=== PATIENT | female | born 1960 | race Caucasian/White ===

== ENCOUNTER 2018-09-04 01:46 | Emergency (ER) | payer OTHER ==
[~2018-09-04 01:46] MED LIST: CALC500T76 PO; LEVO112T43 PO; LEVO75TA68 PO; LOR5 PO; MULT1CAP41 PO
--- NOTE | 2018-09-04 02:09 | ER Report ---
History and Physical Time Seen By MD: 02:09 Hx. of Stated Complaint: PATIENT STARTED HAVING SYMPTOMS OF A UTI ON WEDNESDAY, PLACED ON ANTIBIOTICS; STATES THAT SHE STILL FEELS LIKE SHE IS HAVING SOME DISCOMOFRT AND PAIN AND HAVING TO PEE ALL THE TIME HPI/ROS CHIEF COMPLAINT: Dysuria, urinary frequency, right lower abdominal and back pain HISTORY OF PRESENT ILLNESS: This is a 58-year-old female. She has been treated for a UTI starting on Wednesday. She is on Bactrim DS. Still having some dysuria, but tonight started to have worsening right lower abdominal pain. Also with radiation to the lower back. Urine a little dark as well. No problems with bowels. No fevers or chills. She does have some nausea occasionally, but doing okay at this time. No chest pain or shortness of breath. Allergies: Coded Allergies: No Known Drug Allergies (Verified , 06/23/12) Home Meds Active Scripts Ondansetron (ONDANSETRON ODT) 4 Mg Tab.rapdis, 4 MG PO Q6H PRN for NAUSEA/VOMITING, #20 TAB 0 Refills Prov:MENDEZ CURTIS MD 09/04/18 Ketorolac Tromethamine (KETOROLAC TROMETHAMINE) 10 Mg Tab, 10 MG PO Q6H PRN for PAIN, #12 TAB 0 Refills Prov:MENDEZ CURTIS MD 09/04/18 Hydrocodone Bit/Acetaminophen (HYDROCODON-ACETAMINOPHEN 5-325) 1 Each Tablet, 1 EACH PO Q4H PRN for PAIN, #12 TAB 0 Refills Prov:MENDEZ CURTIS MD 09/04/18 Tamsulosin Hcl (FLOMAX) 0.4 Mg Cap.er.24h, 0.4 MG PO QDAY, #14 CAP 0 Refills Prov:MENDEZ CURTIS MD 09/04/18 Reported Medications Levothyroxine Sodium (Levothyroxine Sodium) 112 Mcg Tablet, 112 MCG PO QAM, 0 Refills 05/13/11 Multivitamins W-Minerals (Multivitamin) 1 Cap Capsule, 1 CAP PO DAILY, 0 Refills 05/13/11 Calcium (Calcium) 500 Mg Tablet, 500 MG PO, 0 Refills 05/13/11 Reviewed Nurses Notes: Yes Hx Alcohol Use: Yes (OCCASIONALLY) Constitutional Vital Sign - Last 24 Hours 09/04/18 09/04/18 09/04/18 09/04/18 02:00 02:16 02:30 02:31 Temp 98.1 Pulse 55 50 60 Resp 17 B/P (MAP) 141/71 (94) Pulse Ox 96 97 95 O2 Delivery Room Air 09/04/18 09/04/18 09/04/18 09/04/18 02:46 03:00 03:01 03:16 Pulse 47 ??? 62 B/P (MAP) 140/83 (102) Pulse Ox 95 94 96 09/04/18 09/04/18 09/04/18 03:31 03:46 04:06 Pulse 49 61 49 Pulse Ox 98 94 Intake and Output 09/03/18 09/03/18 09/04/18 15:00 23:00 07:00 Intake Total 1000 ml Balance 1000 ml Physical Exam General Appearance: Alert, having mild distress due to pain. Eyes: Pupils equal and round no injection. ENT: Normal oral mucosa. Moist mucous membranes. Respiratory: Chest is non tender, lungs are clear to auscultation. Cardiac: regular rate and rhythm Gastrointestinal: Abdomen is soft, having some tenderness in the right lower abdomen. No CVA tenderness. Musculoskeletal: Extremities have full range of motion. Skin: No rashes or lesions. DIFFERENTIAL DIAGNOSIS: After history and physical exam differential diagnosis was considered for right lower abdominal pain including but not limited to appendicitis, gastroenteritis, colitis, kidney stone and urinary tract infection. Medical Decision Making Data Points Result Diagram: 09/04/18 0224 09/04/18 0224 Laboratory Hematology Test 09/04/18 02:09 09/04/18 02:24 Urine Color Yellow Urine Clarity Slightly-cloudy Urine pH 5.0 pH (4.8-9.5) Urine Specific [place] 1.020 Urine Protein Negative mg/dL (NEGATIVE) Urine Glucose (UA) Negative mg/dL (NEGATIVE) Urine Ketones Negative mg/dL (NEGATIVE) Urine Blood Large (NEGATIVE) Urine Nitrite Negative (NEGATIVE) Urine Bilirubin Negative (NEGATIVE) Urine Urobilinogen Negative mg/dL (0.2-1.9) Urine Leukocyte Esterase Small (NEGATIVE) Urine RBC 346 /HPF (0-2/HPF) Urine WBC 9 /HPF (0-5/HPF) Urine Squamous Epithelial Cells Few /LPF (</=FEW) Urine Transitional Epithelial Cells Few /LPF (NONE-FEW) Urine Calcium Oxalate Crystals Few /HPF (NONE) Urine Bacteria Negative /HPF (NONE-FEW) Urine Mucus None /HPF (NONE-FEW) Red Blood Count 4.66 M/uL (4.17-5.56) Mean Corpuscular Volume 93.0 fL (80.0-96.0) Mean Corpuscular Hemoglobin 31.6 pg (26.0-33.0) Mean Corpuscular Hemoglobin Concent 33.9 g/dL (32.0-36.0) Red Cell Distribution Width 12.5 % (11.5-14.5) Mean Platelet Volume 9.6 fL (7.2-11.1) Neutrophils (%) (Auto) 56.9 % (39.4-72.5) Lymphocytes (%) (Auto) 27.4 % (17.6-49.6) Monocytes (%) (Auto) 11.7 % (4.1-12.4) Eosinophils (%) (Auto) 3.1 % (0.4-6.7) Basophils (%) (Auto) 0.9 % (0.3-1.4) Nucleated RBC Relative Count (auto) 0.1 /100WBC Neutrophils # (Auto) 2.7 K/uL (2.0-7.4) Lymphocytes # (Auto) 1.3 K/uL (1.3-3.6) Monocytes # (Auto) 0.6 K/uL (0.3-1.0) Eosinophils # (Auto) 0.1 K/uL (0.0-0.5) Basophils # (Auto) 0.0 K/uL (0.0-0.1) Nucleated RBC Absolute Count (auto) 0.01 K/uL Sodium Level 139 mmol/L (137-145) Potassium Level 3.9 mmol/L (3.5-5.0) Chloride Level 107 mmol/L (98-107) Carbon Dioxide Level 23 mmol/L (22-31) Blood Urea Nitrogen 19 mg/dl (7-18) Creatinine 1.10 mg/dl (0.52-1.04) Glomerular Filtration Rate Calc 50.7 Random Glucose 97 mg/dl (75-110) Calcium Level 9.4 mg/dl (8.4-10.2) Total Bilirubin 0.2 mg/dl (0.2-1.3) Aspartate Amino Transf (AST/SGOT) 31 U/L (0-35) Alanine Aminotransferase (ALT/SGPT) 38 U/L (0-56) Alkaline Phosphatase 116 U/L (0-126) Total Protein 6.7 g/dl (6.3-8.2) Albumin 4.1 g/dl (3.5-5.0) Amylase Level 71 U/L (0-110) Lipase 60 U/L (23-300) Chemistry Test 09/04/18 02:09 09/04/18 02:24 Urine Color Yellow Urine Clarity Slightly-cloudy Urine pH 5.0 pH (4.8-9.5) Urine Specific [place] 1.020 Urine Protein Negative mg/dL (NEGATIVE) Urine Glucose (UA) Negative mg/dL (NEGATIVE) Urine Ketones Negative mg/dL (NEGATIVE) Urine Blood Large (NEGATIVE) Urine Nitrite Negative (NEGATIVE) Urine Bilirubin Negative (NEGATIVE) Urine Urobilinogen Negative mg/dL (0.2-1.9) Urine Leukocyte Esterase Small (NEGATIVE) Urine RBC 346 /HPF (0-2/HPF) Urine WBC 9 /HPF (0-5/HPF) Urine Squamous Epithelial Cells Few /LPF (</=FEW) Urine Transitional Epithelial Cells Few /LPF (NONE-FEW) Urine Calcium Oxalate Crystals Few /HPF (NONE) Urine Bacteria Negative /HPF (NONE-FEW) Urine Mucus None /HPF (NONE-FEW) White Blood Count 4.7 k/uL (4.5-11.0) Red Blood Count 4.66 M/uL (4.17-5.56) Hemoglobin 14.7 g/dL (12.0-16.0) Hematocrit 43.3 % (34.0-47.0) Mean Corpuscular Volume 93.0 fL (80.0-96.0) Mean Corpuscular Hemoglobin 31.6 pg (26.0-33.0) Mean Corpuscular Hemoglobin Concent 33.9 g/dL (32.0-36.0) Red Cell Distribution Width 12.5 % (11.5-14.5) Platelet Count 180 K/uL (150-450) Mean Platelet Volume 9.6 fL (7.2-11.1) Neutrophils (%) (Auto) 56.9 % (39.4-72.5) Lymphocytes (%) (Auto) 27.4 % (17.6-49.6) Monocytes (%) (Auto) 11.7 % (4.1-12.4) Eosinophils (%) (Auto) 3.1 % (0.4-6.7) Basophils (%) (Auto) 0.9 % (0.3-1.4) Nucleated RBC Relative Count (auto) 0.1 /100WBC Neutrophils # (Auto) 2.7 K/uL (2.0-7.4) Lymphocytes # (Auto) 1.3 K/uL (1.3-3.6) Monocytes # (Auto) 0.6 K/uL (0.3-1.0) Eosinophils # (Auto) 0.1 K/uL (0.0-0.5) Basophils # (Auto) 0.0 K/uL (0.0-0.1) Nucleated RBC Absolute Count (auto) 0.01 K/uL Glomerular Filtration Rate Calc 50.7 Calcium Level 9.4 mg/dl (8.4-10.2) Total Bilirubin 0.2 mg/dl (0.2-1.3) Aspartate Amino Transf (AST/SGOT) 31 U/L (0-35) Alanine Aminotransferase (ALT/SGPT) 38 U/L (0-56) Alkaline Phosphatase 116 U/L (0-126) Total Protein 6.7 g/dl (6.3-8.2) Albumin 4.1 g/dl (3.5-5.0) Amylase Level 71 U/L (0-110) Lipase 60 U/L (23-300) Urinalysis Test 09/04/18 02:09 Urine Color Yellow Urine Clarity Slightly-cloudy Urine pH 5.0 pH (4.8-9.5) Urine Specific [place] 1.020 Urine Protein Negative mg/dL (NEGATIVE) Urine Glucose (UA) Negative mg/dL (NEGATIVE) Urine Ketones Negative mg/dL (NEGATIVE) Urine Blood Large (NEGATIVE) Urine Nitrite Negative (NEGATIVE) Urine Bilirubin Negative (NEGATIVE) Urine Urobilinogen Negative mg/dL (0.2-1.9) Urine Leukocyte Esterase Small (NEGATIVE) Urine RBC 346 /HPF (0-2/HPF) Urine WBC 9 /HPF (0-5/HPF) Urine Squamous Epithelial Cells Few /LPF (</=FEW) Urine Transitional Epithelial Cells Few /LPF (NONE-FEW) Urine Calcium Oxalate Crystals Few /HPF (NONE) Urine Bacteria Negative /HPF (NONE-FEW) Urine Mucus None /HPF (NONE-FEW) EKG/Imaging Imaging COMPUTED TOMOGRAPHY ABDOMEN AND PELVIS WITH INTRAVENOUS CONTRAST DATE OF EXAM: 09/04/2018 3:04 AM INDICATION: Right-sided flank pain. COMPARISON: None. TECHNIQUE: Contrast enhanced abdomen and pelvis CT performed during the injection of 75 ml of Isovue 370. Sagittal and coronal reconstructions were performed. One of the following dose optimization techniques was utilized in [facility] performance of this exam: Automated exposure control; adjustment of the mA and/or kV according to the patient's size; or use of an iterative reconstruction technique. Specific details can be referenced in the facility's radiology CT exam operational policy. FINDINGS: Lung bases: There are multiple bilateral pulmonary nodules measuring under 5 mm in diameter. Liver and hepatic vasculature: No acute abnormality or suspicious lesion. Subcentimeter hypoattenuating lesion in the posterior right lobe on image 22 series 2 likely represents a cyst or hemangioma. Gallbladder and bile ducts: Normal. Spleen: Normal. Pancreas: Normal. Adrenals: Normal. Kidneys, ureters and bladder: 4 mm calculus at the right ureterovesicular junction with associated mild hydronephrosis and hydroureter. Reactive increased urothelial enhancement in the distal aspect of the right ureter. No nobstructing punctate calculus in the mid portion of the left kidney. Question subcentimeter cyst in the midportion of the right kidney on image 40 series 2. Retroperitoneum and aorta: Nonaneurysmal aorta with minimal atherosclerosis. No adenopathy. GI tract, mesentery and peritoneum: Nonacute. Normal appendix. Uterus and adnexa: Retroflexed uterus. Bones and soft tissues: No acute abnormality or suspicious lesion. IMPRESSION: 1. 4 mm calculus at the right ureterovesicular junction with associated mild hydronephrosis and hydroureter 2. Multiple pulmonary nodules measuring under 5 mm in diameter. Current Fleischner Society recommendations for multiple pulmonary nodules less than 6 mm (average of long and short axis): - Low risk: No routine follow-up. - High risk: Optional noncontrast CT at 12 months. Use most suspicious nodule as guide to management. Miguel H, Rome Us, Anjelica J, et al. Guidelines for management of small pulmonary nodules detected on CT images: from the Fleischner society 2017. Report Dictated By: Wesley Bhandari MD at 09/04/2018 3:25 AM ED Course/Re-evaluation Clinical Indication for ER IV: Hydration, IV Access ED Course Patient was given a liter of normal saline. Labs and CT scan obtained. CT scan does show 4 mm stone right UVJ. Patient was given medicine to use for pain and nausea home as well as Flomax. See discharge instructions. Decision to Disposition Date: Sep 04, 2018 Decision to Disposition Time: 03:52 Depart Departure Latest Vital Signs Vital Signs Date Time Temp Pulse Resp B/P (MAP) Pulse Ox O2 Delivery O2 Flow Rate FiO2 09/04/18 04:06 49 94 09/04/18 03:00 140/83 (102) 09/04/18 02:00 98.1 17 Room Air Impression: Primary Impression: Kidney stone on right side Condition: Improved Disposition: HOME OR SELF-CARE Referrals: MAGGIE SUÁREZ (PCP) New Scripts Ondansetron (ONDANSETRON ODT) 4 Mg Tab.rapdis 4 MG PO Q6H PRN for NAUSEA/VOMITING, #20 TAB 0 Refills Prov: MENDEZ CURTIS MD 09/04/18 Ketorolac Tromethamine (KETOROLAC TROMETHAMINE) 10 Mg Tab 10 MG PO Q6H PRN for PAIN, #12 TAB 0 Refills Prov: MENDEZ CURTIS MD 09/04/18 Hydrocodone Bit/Acetaminophen (HYDROCODON-ACETAMINOPHEN 5-325) 1 Each Tablet 1 EACH PO Q4H PRN for PAIN, #12 TAB 0 Refills Prov: MENDEZ CURTIS MD 09/04/18 Tamsulosin Hcl (FLOMAX) 0.4 Mg Cap.er.24h 0.4 MG PO QDAY, #14 CAP 0 Refills Prov: MENDEZ CURTIS MD 09/04/18 Patient Instructions: Kidney Stones (ED) Additional Instructions: Rest and increase fluid intake. For pain you can use: Toradol 10mg, one every 6 hours as needed for pain. Lortab 5/325, take 1-2 every 4 hours as needed for pain. For Nausea: Zofran 4mg, one every 4-6 hours as needed for nausea. To help the stone to pass and to help decrease swelling and pain in the urinary system after the stone passes, we recommend using Flomax 0.4mg one daily for the next couple of weeks. MENDEZ CURTIS MD Sep 04, 2018 02:09
[2018-09-04] MEDS ORDERED: NS(*) 0.9% 1000 ML BAG 1,000 ML IV ONE (02:16)
[2018-09-04 02:40] LABS: PLATELET COUNT, AUTOMATED 180 K/uL (150-450)
[2018-09-04 03:00] VITALS: BP 140/83
[2018-09-04] MEDS ORDERED: IOPAMIDOL 76% 75 ML INFUS BTL 75 ML ONE (03:01)
--- NOTE | 2018-09-04 03:42 | RADIOLOGY IMAGING REPORT ---
FACILITY: [facility] PATIENT NAME: Tianna Reno : 1960 MR: [id number] V: [id number] EXAM DATE: ORDERING PHYSICIAN: MENDEZ CURTIS TECHNOLOGIST: Location: [facility] Patient: Tianna Reno : 1960 Visit/Account:[id number] Date of Sevice: 09/04/2018 COMPUTED TOMOGRAPHY ABDOMEN AND PELVIS WITH INTRAVENOUS CONTRAST DATE OF EXAM: 09/04/2018 3:04 AM INDICATION: Right-sided flank pain. COMPARISON: None. TECHNIQUE: Contrast enhanced abdomen and pelvis CT performed during the injection of 75 ml of Isovue 370. Sagittal and coronal reconstructions were performed. One of the following dose optimization te chniques was utilized in the performance of this exam: Automated exposure control; adjustment of the mA and/or kV according to the patient's size; or use of an iterative reconstruction technique. Spec [facility] details can be referenced in the facility's radiology CT exam operational policy. FINDINGS: Lung bases: There are multiple bilateral pulmonary nodules measuring under 5 mm in diameter. Liver and hepatic vasculature: No acute abnormality or suspicious lesion. Subcentimeter hypoattenua ting lesion in the posterior right lobe on image 22 series 2 likely represents a cyst or hemangioma. Gallbladder and bile ducts: Normal. Spleen: Normal. Pancreas: Normal. Adrenals: Normal. Kidneys, ureters and bladder: 4 mm calculus at the right ureterovesicular junction with associated m ild hydronephrosis and hydroureter. Reactive increased urothelial enhancement in the distal aspect o f the right ureter. Nonobstructing punctate calculus in the mid portion of the left kidney. Questio n subcentimeter cyst in the midportion of the right kidney on image 40 series 2. Retroperitoneum and aorta: Nonaneurysmal aorta with minimal atherosclerosis. No adenopathy. GI tract, mesentery and peritoneum: Nonacute. Normal appendix. Uterus and adnexa: Retroflexed uterus. Bones and soft tissues: No acute abnormality or suspicious lesion. IMPRESSION: 1. 4 mm calculus at the right ureterovesicular junction with associated mild hydronephrosis and hydr oureter 2. Multiple pulmonary nodules measuring under 5 mm in diameter. Current Fleischner Society recommend ations for multiple pulmonary nodules less than 6 mm (average of long and short axis): - Low risk: No routine follow-up. - High risk: Optional noncontrast CT at 12 months. Use most suspicious nodule as guide to management. Miguel H, Rome Us, Anjelica J, et al. Guidelines for management of small pulmonary nodules detected on CT images: from the Fleischner society 2017. Report Dictated By: Wesley Bhandari MD at 09/04/2018 3:25 AM Report E-Signed By: Wesley Bhandari MD at 09/04/2018 3:38 AM WSN:[id number]
[2018-09-04] MEDS ORDERED: TAMS0.4C25 PO (04:02)
[2018-09-04] MEDS ORDERED: KET10 PO (04:02)
[2018-09-04] MEDS ORDERED: LOR5/325 PO (04:02)
[2018-09-04] MEDS ORDERED: ONDA4TAB9 PO (04:02)
[2018-09-04] MEDS ORDERED: KETOROLAC TROM 10 MG TAB TH PO ONE (04:05)
[2018-09-04] MEDS ORDERED: TAMSULOSIN HCL 0.4 MG CAP PO ONE (04:05)
[2018-09-04] MEDS ORDERED: ONDANSETRON 4 MG ODT TH SL ONE (04:05)
[2018-09-04] MEDS ORDERED: ACET/HYDROC 5/325MG TH ER ONLY 2 TAB/BOTTLE PO ONE (04:05)
== END 2018-09-04 04:21 | disposition home or self-care (01) ==
LOC: ER 02:35
DX: N20.0 Calculus of kidney (principal)
CPT/HCPCS: 74177; 81001; 82150; 83690; 85025; 96360; 99284; J7030; Q9967; S0119; 82040; 82247; 82310; 82374; 82435; 82565; 82947; 84075; 84132; 84155; 84295; 84450; 84460; 84520

== ENCOUNTER → 2018-09-20 | Outpatient (CLI) | payer OTHER ==
[~2018-09-20] MED LIST changes: +KET10 PO; +LOR5/325 PO; +ONDA4TAB9 PO; +TAMS0.4C25 PO
--- NOTE | 2018-09-21 14:26 | RADIOLOGY IMAGING REPORT ---
FACILITY: [facility] PATIENT NAME: ZANE CONTEH : [id number] MR: [id number] V: [id number] EXAM DATE: [id number] ORDERING PHYSICIAN: MAGGIE SUÁREZ TECHNOLOGIST: Shavon Tolentino PROCEDURE:BILATERAL DIGITAL SCREENING MAMMOGRAM WITH CAD ASSISTED INTERPRETATION & 3D TOMOSYNTHESIS COMPARISON:Prior mammograms 09/15/17, 09/07/16, 09/06/15, 08/30/14, 07/25/13, 06/23/12. INDICATIONS:SCREENING FINDINGS: Mild to moderate amount of fibroglandular tissue is seen throughout the breasts. The parenchymal pattern has remained stable allowing for difference in mammographic technique & patient positioning. There is no evidence of malignant appearing mass, malignant appearing calcifications or other secondary sign of malignancy in either breast. DIAGNOSTIC CATEGORY 1--NEGATIVE. RECOMMENDATIONS: ROUTINE MAMMOGRAM AND CLINICAL EVALUATION. IMPRESSION: BIRADS 1: Negative. No significant abnormality is seen. Dictated by: Bridgette Boss M.D. on 09/20/2018 at 16:29 Transcribed by: MOHIT on 09/21/2018 at 8:34 Approved by: Bridgette Boss M.D. on 09/21/2018 at 14:25 [facility]
== END ==
LOC: MAMO 00:38
PROVIDERS: ATTEND Nurse Practitioner Psychiatric/Mental Health
DX: Z12.31 Encounter for screening mammogram for malignant neoplasm of breast (principal)
CPT/HCPCS: 77063; 77067

== ENCOUNTER → 2019-06-13 | Outpatient (CLI) | payer OTHER ==
--- NOTE | 2019-06-13 16:07 | RADIOLOGY IMAGING REPORT ---
FACILITY: [facility] PATIENT NAME: Tianna Reno : 1960 MR: [id number] V: [id number] EXAM DATE: ORDERING PHYSICIAN: ALLEN DENNIS [place]CHNOLOGIST: [place] [facility] [place] Tianna [place] : 1960 Visit/Account:[id number] Date of Sevice: 06/13/2019 Exam type: EXTREMITY NON-VASCULAR RIGHT History: Dogbite along posterior aspect of left thigh with adjacent bruising and swelling Comparison: None. Findings: By technologist notation there are several puncture wound along the posterior aspect the left thigh. Beneath the puncture wound is an irregular hypoechoic region measuring 3.1 x 0.6 x 3 cm. There are scattered small cystic areas surrounding this larger hypoechoic region ranging in size up to 7 mm. T hese may represent a small developing abscesses or areas of hemorrhage IMPRESSION: 1. Immediately beneath the location of the puncture wounds from the recent dogbite there is an irreg ular hypoechoic region of tissue as described above. There are multiple surrounding small cystic are as measuring up to 7 mm. This may represent a developing phlegmon or small surrounding satellite abs cesses. Underlying hematoma is also included in the differential diagnosis. Results were called to ALLEN DENNIS at 06/13/2019 3:59 PM. Report Dictated By: Bridgette Boss MD at 06/13/2019 3:55 PM Report E-Signed By: Bridgette Boss MD at 06/13/2019 3:59 PM WSN:[id number]
== END ==
LOC: US 14:16
PROVIDERS: ATTEND Nurse Practitioner Family
DX: R93.7 Abnormal findings on diagnostic imaging of other parts of musculoskeletal system (principal)
CPT/HCPCS: 93880